=== PATIENT | female | born 1995 | race Caucasian/White ===

== ENCOUNTER 2017-12-11 10:40 | Emergency (ER) | payer OTHER ==
[2017-12-11 10:51] VITALS: BP 105/67; BMI 25.4
[2017-12-11 11:09] LABS: BILIRUBIN,URINE NEGATIVE (NEGATIVE); BLOOD/HEMOGLOBIN,URINE 4+ (NEGATIVE); GLUCOSE, URINE NEGATIVE (NEGATIVE); KETONES,URINE NEGATIVE (NEGATIVE); LEUKOCYTE ESTERASE ,URINE 3+ (NEGATIVE); NITRITES,URINE NEGATIVE (NEGATIVE); PROTEIN,URINE NEGATIVE (NEGATIVE); UROBILINOGEN,URINE NORMAL (NORMAL)
--- NOTE | 2017-12-11 11:10 | DR.GENAD ---
HPI - PCP Primary Care Physician: MINERVA - HPI Comment HPI Comment: WORSE TODAY. - Complaint/Symptoms Chief Complaint Doctors Comments: 5 DAYS POST AND HAVING HEAVY VAGINAL BLEEDING WITH CLOTS AND LOWER ABDOMINAL PAIN. BLEEDING CAUSING PATIENT TO BE WEAK AND DIZZY. Chief Complaint:: PT. HAD A VAGINAL DELIVERY ON 12/06/17 IN [place], [place]. PT. STATES LAST NIGHT SHE STARTED PASSING GOLF BALL SIZED TO SOFTBALL SIZED BLOOD CLOTS. PT. C/O DIZZINESS. PT. WENT TO THE [facility] LAST NIGHT AND STATES HER HGB WAS 8.5. PT. ALSO C/O ABDOMINAL CRAMPING. - Nurses notes reviewed Nurses Notes Review: Yes - Source History Provided: Patient - Mode of Arrival Mode of Arrival: Ambulatory - Timing Onset of Chief Complaint: 12/10/17 Came on: Suddenly - Duration Duration: Constant Duration: Days - Severity Severity: Moderate PMH - PMH Past Medical History: No Past Surgical History: Yes Surgical History: Tonsillectomy - Family History History of Family Medical Conditions: No Family Medical History: Diabetes Mellitus - Social History Does patient currently use any type of tobacco product: No Have you used tobacco products in the last 12 months: No Type of Tobacco Use: None Does any household member use tobacco: No Alcohol Use: None Do you use any recreational Drugs:: No Lives With: Significant Other Lives Where: Home - infectious screening In the last 2 months have you had wt loss of >10#?: NO Have you had fever, night sweats or hemotysis?: No Have you traveled outside the country in the last 6 months?: No Isolation: Standard ROS - Review of Systems Constitutional: Weakness, Fatigue Eyes: No Symptoms Reported ENTM: No Symptoms Reported Respiratoy: No Symptoms Reported Cardiovascular: No Symptoms Reported Gastrointestinal/Abdominal: Abdominal Pain Genitourinary: No Symptoms Reported Neurological: Weakness, Dizziness Musculoskeletal: No Symptoms Reported Integumentary: No Symptoms Reported Hematologic/Lymphatic: No Symptoms Reported Endocrine: No Symptoms Reported All Other Systems: Reviewed and Negative PE - Vital Signs Vitals: Temperature 98.7 F Pulse Rate 92 Respiratory Rate 17 Blood Pressure [Right Arm] 93/54 Blood Pressure 105/67 O2 Sat by Pulse Oximetry 99 - General Limitations: No Limitations General Appearance: Alert - Head Head Exam: Normal Inspection - Eyes Eye exam: Normal Appearance - ENT ENT Exam: Normal External Ear Exam External Ear Exam: Normal External Inspection TM/Canal Exam: Bilateral Normal Nose Exam: Normal Nose Exam Mouth Exam: Normal Inspection Throat Exam: Normal Inspection - Chest Chest Inspection: Symmetric Chest Wall Rise - Respiratory Respiratory Exam: Normal Lung Sounds Bilat Respiratory Exam: Bilateral Clear to Auscultation - Cardiovascular Cardiovascular Exam: Regular Rate, Normal Rhythm, Normal Heart Sounds - Abdominal Exam Abdominal Exam: Normal Bowel Sounds, Soft. negative: Tenderness - Extremities Extremities Exam: Normal Inspection - Back Back Exam: Normal Inspection - Neurologic Neurological Exam: Alert, Oriented X3 - Psychiatric Psychiatric Exam: Normal Affect, Normal Mood - Skin Skin Exam: Normal Color [facility] - Additional Information Additional Information Obtained From: Family - Differential Diagnosis Differential Diagnosis: POST HEMORRHAGE, LOWER ABDOMINAL PAIN Course - Treatment Treatment: SEE ORDERS. - Education/Counseling Education/Counseling: Patient, Family, Education Educated On: Treatment, Diagnosis, Needs for Follow Up ROR - Labs Reviewed Laboratory Results Reviewed?: Yes Result Diagrams: 12/11/17 11:20 12/11/17 11:20 Laboratory: WBC 11.1 X10^3/uL (3.6-10.0) H 12/11/17 11:20 RBC 3.40 X10^6/uL (3.5-5.4) L 12/11/17 11:20 Hgb 9.1 g/dL (12.0-16.0) L 12/11/17 11:20 Hct 27.4 % (36.0-47.0) L 12/11/17 11:20 MCV 80.6 fL (80.0-100.0) 12/11/17 11:20 MCH 26.7 pg (27.0-34.0) L 12/11/17 11:20 MCHC 33.1 g/dL (33.0-35.0) 12/11/17 11:20 RDW 14.3 % (11.6-16.5) 12/11/17 11:20 Plt Count 268 X10^3/uL (150.0-450.0) 12/11/17 11:20 Plt Count Comment Adequate (ADEQUATE) 12/11/17 11:20 MPV 7.0 fL (7.4-11.0) L 12/11/17 11:20 Neut % 76.2 % (42.0-75.0) H 12/11/17 11:20 Lymph % 15.2 % (21.0-51.0) L 12/11/17 11:20 [place] % 5.1 % (0.0-13.0) 12/11/17 11:20 Eos % 3.3 % (0.9-2.9) H 12/11/17 11:20 Baso % 0.2 % (0.2-1.0) 12/11/17 11:20 Neut # 8.4 x10^3/uL (2.2-4.8) H 12/11/17 11:20 Lymph # 1.7 X10^3/uL (1.3-2.9) 12/11/17 11:20 [place] # 0.6 x10^3/uL (0.3-0.8) 12/11/17 11:20 Eos # 0.4 x10^3/uL (0.0-0.2) H 12/11/17 11:20 Baso # 0.0 X10^3/uL (0.0-0.1) 12/11/17 11:20 Absolute Nucleated RBC 0.0 /100WBC 12/11/17 11:20 Total Counted 100 12/11/17 11:20 Neutrophils % (Manual) 81 % (39-76) H 12/11/17 11:20 Lymphocytes % (Manual) 14 % (13-43) 12/11/17 11:20 Monocytes % (Manual) 2 % (4-9) L 12/11/17 11:20 Eosinophils % (Manual) 3 % (0-6) 12/11/17 11:20 Plt Morphology Comment Normal (NORMAL) 12/11/17 11:20 RBC Morphology Normal (NORMAL) 12/11/17 11:20 INR Target Range - 12/11/17 11:20 INR 0.98 (0.8-1.3) 12/11/17 11:20 PTT 31.9 SECONDS (22.9-36.5) 12/11/17 11:20 PTT Comment - 12/11/17 11:20 Sodium 140 mmol/L (136-145) 12/11/17 11:20 Corrected Sodium TNP 12/11/17 11:20 Potassium 3.6 mmol/L (3.5-5.1) 12/11/17 11:20 Chloride 104 mmol/L (98-107) 12/11/17 11:20 Carbon Dioxide 28.3 mmol/L (21-32) 12/11/17 11:20 BUN 6 mg/dL (7-18) L 12/11/17 11:20 Creatinine 0.54 mg/dL (0.55-1.02) L 12/11/17 11:20 Est GFR (MDRD) Af Amer > 60 (>60) 12/11/17 11:20 Est GFR (MDRD) Non-Af > 60 (>60) 12/11/17 11:20 Glucose 81 mg/dL (65-99) 12/11/17 11:20 Calcium 8.6 mg/dL (8.5-10.1) 12/11/17 11:20 Corrected Calcium 9.8 mg/dL (8.5-10.1) 12/11/17 11:20 Total Bilirubin 0.20 mg/dL (0.2-1.0) 12/11/17 11:20 AST 26 Units/L (15-37) 12/11/17 11:20 ALT 37 Units/L (12-78) 12/11/17 11:20 Alkaline Phosphatase 128 Units/L (46-116) H 12/11/17 11:20 Total Protein 7.2 g/dL (6.4-8.2) 12/11/17 11:20 Albumin 2.5 g/dL (3.4-5.0) L 12/11/17 11:20 Globulin 4.7 g/dL (2.5-4.5) H 12/11/17 11:20 Albumin/Globulin Ratio 0.5 Ratio (1.1-2.1) L 12/11/17 11:20 Specimen Type Clean catch urine 12/11/17 10:55 Urine Color Yellow (YELLOW) 12/11/17 10:55 Urine Appearance Clear (CLEAR) 12/11/17 10:55 Urine pH 6.0 (5.0 - 8.0) 12/11/17 10:55 Ur Specific [place] 1.015 (1.000-1.030) 12/11/17 10:55 Urine Protein Negative (NEGATIVE) 12/11/17 10:55 Urine Glucose (UA) Negative (NEGATIVE) 12/11/17 10:55 Urine Ketones Negative (NEGATIVE) 12/11/17 10:55 Urine Occult Blood 4+ (NEGATIVE) 12/11/17 10:55 Urine Nitrite Negative (NEGATIVE) 12/11/17 10:55 Urine Bilirubin Negative (NEGATIVE) 12/11/17 10:55 Urine Urobilinogen Normal (NORMAL) 12/11/17 10:55 Ur Leukocyte Esterase 3+ (NEGATIVE) 12/11/17 10:55 Urine RBC 12-15 /HPF (NEGATIVE) 12/11/17 10:55 Urine WBC 10-12 /HPF (NEGATIVE) 12/11/17 10:55 Ur Squamous Epith Cells Rare /HPF (NEGATIVE) 12/11/17 10:55 Amorphous Sediment 1+ /HPF (NEGATIVE) 12/11/17 10:55 Urine Bacteria Negative /HPF (NEGATIVE) 12/11/17 10:55 Ur Culture Indicated? No/not indicated 12/11/17 10:55 - XRAY XRAY Interpreted by: Radiologist XRAY Findings: REPORT DISCUSS WITH PATIENT. - Diagnosis Discharge Problem: Lower abdominal pain hemorrhage Qualifiers: hemorrhage type: delayed hemorrhage Qualified Code(s): O72.2 - Delayed and secondary hemorrhage - Discharge Plan Disposition: 01 HOME, SELF-CARE Condition: Stable - Follow ups/Referrals Follow ups/Referrals: Jay Wilkerson [Primary Care Provider] - 3 days - Instructions Instructions: Abnormal Uterine Bleeding, [id number] Additional Instructions: TO [facility] NOW.
[2017-12-11 11:18] LABS: AMORPHOUS SEDIMENT,UR 1+ /HPF (NEGATIVE); APPEARANCE,URINE CLEAR (CLEAR); BACTERIA,URINE NEGATIVE /HPF (NEGATIVE); COLOR,URINE YELLOW (YELLOW); SQUAMOUS EPITHELIAL CELL,UR RARE /HPF (NEGATIVE)
[2017-12-11 11:31] LABS: BASOPHILS % (AUTO) 0.2 % (0.2-1.0); EOSINOPHILS # (AUTO) 0.4 x10^3/uL (0.0-0.2); EOSINOPHILS % (AUTO) 3.3 % (0.9-2.9); HEMATOCRIT 27.4 % (36.0-47.0); HEMOGLOBIN 9.1 g/dL (12.0-16.0); LYMPHOCYTES # (AUTO) 1.7 X10^3/uL (1.3-2.9); LYMPHOCYTES % (AUTO) 15.2 % (21.0-51.0); MEAN CORPUSCULAR HEMOGLOBIN 26.7 pg (27.0-34.0); MEAN CORPUSCULAR HGB CONC 33.1 g/dL (33.0-35.0); MEAN CORPUSCULAR VOLUME 80.6 fL (80.0-100.0); MONOCYTES # (AUTO) 0.6 x10^3/uL (0.3-0.8); MONOCYTES % (AUTO) 5.1 % (0.0-13.0); NEUTROPHILS # (AUTO) 8.4 x10^3/uL (2.2-4.8); NEUTROPHILS % (AUTO) 76.2 % (42.0-75.0); PLATELET COUNT 268 X10^3/uL (150.0-450.0); RED CELL DISTRIBUTION WIDTH 14.3 % (11.6-16.5); WHITE BLOOD COUNT 11.1 X10^3/uL (3.6-10.0)
[2017-12-11 11:41] LABS: ALANINE AMINOTRANSFERASE 37 Units/L (12-78); ALBUMIN 2.5 g/dL (3.4-5.0); ALKALINE PHOSPHATASE 128 Units/L (46-116); ASPARTATE AMINO TRANSFERASE 26 Units/L (15-37); BLOOD UREA NITROGEN 6 mg/dL (7-18); CALCIUM 8.6 mg/dL (8.5-10.1); CARBON DIOXIDE 28.3 mmol/L (21-32); CHLORIDE 104 mmol/L (98-107); COR CA(FOR HYPOALB) 9.8 mg/dL (8.5-10.1); CREATININE 0.54 mg/dL (0.55-1.02); SODIUM 140 mmol/L (136-145); TOTAL PROTEIN 7.2 g/dL (6.4-8.2); eGFR BLACK RACES > 60 (>60); eGFR NON BLACK RACES > 60 (>60)
[2017-12-11 11:52] LABS: PLATELET MORPHOLOGY COMMENT NORMAL (NORMAL)
--- NOTE | 2017-12-11 12:37 | US ---
HISTORY: vaginal bleeding Study: Pelvic sonogram Comparison: None Technique: Multiple grayscale sonographic images were obtained. Findings: The uterus is enlarged measuring 14.1 x 8.7 x 10 cm. This is likely related to the patient's recent g estation. The myometrium is heterogeneous. The endometrium incompletely visualized but appears mildl y thickened maximum diameter 16.4 mm. There is a small cystic area within the endometrium possibly re presenting fluid or hemorrhage. No definite retained products are identified however they could not b e entirely excluded due to the incomplete visualization of the endometrium. The right ovary measured 3.2 x 2.3 x 3.7 cm and appeared normal and demonstrated normal blood flow. The left ovary measured 3. 3 x 1.9 x 2.9 cm and demonstrated normal blood flow and structure. No adnexal masses are identified. No free fluid is identified. IMPRESSION: Residually enlarged uterus secondary to the recent gestation Heterogeneous endometrium making it difficult to completely evaluate the endometrium. There does appe ar to be some mild endometrial thickening with a small cystic area within the endometrial canal likel y representing a small amount of fluid or blood. No definite retained products are identified however they cannot be entirely excluded due to the less than optimal visualization of the endometrium. Reported By:
== END 2017-12-11 15:08 | disposition home or self-care (01) ==
LOC: ER 10:48
DX: O72.2 Delayed and secondary postpartum hemorrhage (principal); R10.84 Generalized abdominal pain
CPT/HCPCS: 36415; 76856; 80053; 81001; 85025; 85610; 85730; 99283; 99284

== ENCOUNTER 2020-07-09 06:24 | Inpatient (IN) ==
[2020-07-09] MEDS ORDERED: D5LR 1L W PITOCIN 10 UNITS/L 10 UNITS/1,000 ML BAG IV PRN (06:31)
[2020-07-09] MEDS ORDERED: PHENERGAN INJ 25 MG IM PRN ×2 (06:31→15:31)
[2020-07-09] MEDS ORDERED: REGLAN INJ 10 MG VIAL IVP PRN (06:31)
[2020-07-09] MEDS ORDERED: PITOCIN IVP ONE (06:31)
[2020-07-09] MEDS ORDERED: STADOL INJ IVP PRN (06:34)
[2020-07-09] MEDS ORDERED: LR 1000 ML IV 1,000 ML IV ONE (06:36)
[2020-07-09] MEDS ORDERED: FENTANYL INJ 100 mcg ONE (06:36)
[2020-07-09] MEDS ORDERED: BETADINE SOLN ONE ×2 (06:36→16:55)
[2020-07-09] MEDS ORDERED: FENTANYL 2 mcg/mL-ROPIV 0.1%-NS EPIDURAL 200 ML EPI ONE (06:38)
[2020-07-09] MEDS: D5 1/2 NS 1000 ML 1,000 ML IV SCH ×2 (06:40→15:00)
[2020-07-09] MEDS ORDERED: REGLAN INJ 10 MG VIAL ONE (07:56)
[2020-07-09] MEDS ORDERED: NS 500 ML IV 500 ML IV ONE (12:41)
[2020-07-09] MEDS ORDERED: XYLOCAINE 1 % (PLAIN) ONE (13:20)
[2020-07-09] MEDS ORDERED: XYLOCAINE 2 % (PLAIN) ONE (14:32)
[2020-07-09] MEDS ORDERED: DECADRON INJ ONE (14:32)
[2020-07-09] MEDS: D5 1/2 NS 1000 ML 1,000 ML IV ONE ×4 (15:00→16:33)
--- NOTE | 2020-07-09 15:41 | DR.H&PGYN ---
H&P OBSTERICS/GYNECOLOGY Allergies Allergies Allergy/AdvReac Type Severity Reaction Status Date / Time No Known Drug Allergies Allergy Verified 12/11/17 10:45 History of Present Illness History of Present Illness: 39 week elective induction of labor Review of Systems Constitutional: No Symptoms Reported Eyes: No Symptoms Reported ENT: No Symptoms Reported Respiratory: No Symptoms Reported Cardiovascular: No Symptoms Reported Gastrointestinal: No Symptoms Reported Genitourinary: No Symptoms Reported Musculoskeletal: No Symptoms Reported Skin: No Symptoms Reported Neurological: No Symptoms Reported Obsterical History : 2 Para: 1 Gynecologic History Patient has had abnormal pap smear: No Past Medical History Past Gynecological History: None Past Surgical History Surgical History: Tonsillectomy Social History Does patient currently use any type of tobacco product: No Have you used tobacco products in the last 12 months: No Type of Tobacco Use: None Does any household member use tobacco: No Alcohol Use: None Drug Use: None Medications Active Medications Butorphanol Tartrate (Stadol Inj) 1 mg IVP Q3H PRN PRN Reason: PAIN MILD Dextrose/Lactated Ringer's (D5lr 1l W Pitocin 10 Units/L) 10 units in 1,000 mls @ 12 mls/hr IV PER PROTOCOL PRN; Protocol PRN Reason: PER PROTOCOL Last Titration: 07/09/20 12:50 Dose: 10 milliunit/min, 60 mls/hr Documented by: Dextrose/Sodium Chloride (D5 1/2 Ns 1000 Ml) 1,000 mls @ 125 mls/hr IV Q8H [facility] Last Admin: 07/09/20 06:40 Dose: 125 mls/hr Documented by: Oxytocin 20 units/ Dextrose/ (Sodium Chloride) 1,002 mls @ 125 mls/hr IV Q8H [facility] Ibuprofen (Motrin Tab 800 Mg) 800 mg PO Q8H PRN PRN Reason: MILD TO MODERATE PAIN Metoclopramide HCl (Reglan Inj 10 Mg Vial) 10 mg IVP Q6H PRN PRN Reason: Indigestion/Nausea Last Admin: 07/09/20 08:01 Dose: 10 mg Documented by: Promethazine HCl (Phenergan Inj 25 Mg) 12.5 - 25 mg IM Q4H PRN PRN Reason: NAUSEA/VOMITING Promethazine HCl (Phenergan Inj 25 Mg) 25 mg IM Q4-6H PRN PRN Reason: NAUSEA/VOMITING Physical Exam Temperature: 97.2 F Blood Pressure: 105/67 Respiratory Rate: 18 O2 Sat by Pulse Oximetry: 100 Oriented: Normal Eyes: Normal Ear: Normal Nose: Normal Throat: Normal Respiratory: Normal Cardiovascular: Normal : Normal GI: None Skin: Normal Psychiatric: Normal Mood Description: Calm Affect: Normal Speech Pattern: Clear Plan Plan: routine induction of labor Review H&P Reviewed: Yes Patient was examined?: Yes
--- NOTE | 2020-07-09 15:45 | OB.OPNOTE ---
Op Note-[employer] Post-Op Diagnosis: term Procedure: with midline epis repaired with 2-0 polysorb Type of Anesthesia: Epidural Anesthetic Surgeon: lara EBL: 200 Type of Fluids Used:: Normal Saline and Lactated Ringers Complications:: minor shoulder dystocia relieved with Edgar and suprapubic pressure Drains/Tubes Placed: None Specimen: placenta Findings: Male 8lb 4oz apgars 8-9
[2020-07-09] MEDS ORDERED: MILK OF MAGNESIA PO PRN (15:52)
[2020-07-09] MEDS ORDERED: AMBIEN PO PRN (15:52)
[2020-07-09] MEDS ORDERED: DERMOPLAST PAIN RELIEF SPRAY TOP PRN (15:52)
[2020-07-09] MEDS ORDERED: ADACEL or BOOSTRIX TDaP VACCINE IM ONE (15:52)
[2020-07-09] MEDS: D5 1/2 NS 1L W PITOCIN 20 UNITS/L 20 UNITS/1,000 ML BAG IV ONE ×2 (16:00→16:30)
[2020-07-09] MEDS ORDERED: D5 1/2 NS 1000 ML 1,000 ML with PITOCIN 20 UNITS IV SCH ×2 (16:00)
[2020-07-09] MEDS ORDERED: PITOCIN ONE (16:17)
[2020-07-09] MEDS: MOTRIN TAB 800 MG PO PRN (19:50)
[2020-07-10] MEDS: MOTRIN TAB 800 MG PO PRN (02:30)
[2020-07-10 06:29] LABS: HEMATOCRIT 26.8 % (36.0-47.0); HEMOGLOBIN 9.1 g/dL (12.0-16.0)
[2020-07-10] MEDS ORDERED: MOTRIN TAB 800 MG PO PRN (07:54)
[2020-07-10] MEDS ORDERED: NORCO 5/325 MG TAB PO PRN (08:01)
[2020-07-10] MEDS ORDERED: PRENATAL PLUS PO SCH (09:00)
[2020-07-10 12:16] VITALS: BP 95/52
== END 2020-07-10 17:30 | disposition home or self-care (01) | DRG 807 ==
LOC: LD 06:24 → MED/SURG 17:02
PROVIDERS: ADMIT Obstetrics & Gynecology; ATTEND Obstetrics & Gynecology

== ENCOUNTER 2023-08-28 15:13 | Inpatient (IN) ==
[2023-08-28] MEDS: D5 1/2 NS 1,000 ML 1,000 ML IV SCH (17:40)
[2023-08-28] MEDS: ZOFRAN INJ 4 MG VIAL IVP PRN (17:40)
[2023-08-28 17:43] LABS: LYMPHOCYTES # (AUTO) 0.5 X10^3/uL (1.3-2.9); MONOCYTES # (AUTO) 0.3 x10^3/uL (0.3-0.8)
[2023-08-28] MEDS: TYLENOL 325 MG TAB PO PRN (17:44)
[2023-08-28 17:47] LABS: BASOPHILS % (AUTO) 0.2 % (0.2-1.0); HEMATOCRIT 38.6 % (36.0-47.0); HEMOGLOBIN 12.8 g/dL (12.0-16.0); LYMPHOCYTES % (AUTO) 5.9 % (21.0-51.0); MEAN CORPUSCULAR HEMOGLOBIN 28.2 pg (27.0-34.0); MEAN CORPUSCULAR HGB CONC 33.3 g/dL (33.0-35.0); MEAN CORPUSCULAR VOLUME 84.7 fL (80.0-100.0); MEAN PLATELET VOLUME 7.5 fL (7.4-11.0); MONOCYTES % (AUTO) 3.3 % (0.0-13.0); NEUTROPHILS # (AUTO) 8.1 x10^3/uL (2.2-4.8); NEUTROPHILS % (AUTO) 90.6 % (42.0-75.0); PLATELET COUNT 235 X10^3/uL (150.0-450.0); RED BLOOD COUNT 4.55 X10^6/uL (3.5-5.4); RED CELL DISTRIBUTION WIDTH 13.8 % (11.6-16.5)
[2023-08-28 17:51] LABS: ALANINE AMINOTRANSFERASE 23 Units/L (12-78); ALBUMIN 3.7 g/dL (3.4-5.0); ALKALINE PHOSPHATASE 53 Units/L (46-116); ASPARTATE AMINO TRANSFERASE 19 Units/L (15-37); BLOOD UREA NITROGEN 7 mg/dL (7-18); CALCIUM 8.5 mg/dL (8.5-10.1); CARBON DIOXIDE 24.2 mmol/L (21-32); CHLORIDE 102 mmol/L (98-107); COR NA(FOR HYPERGLY) 139 mmol/L (136-145); CREATININE 1.01 mg/dL (0.55-1.02); GLUCOSE 137 mg/dL (65-99); POTASSIUM 3.7 mmol/L (3.5-5.1); SODIUM 138 mmol/L (136-145); TOTAL PROTEIN 7.9 g/dL (6.4-8.2); eGFR NON BLACK RACES > 60 (>60)
[2023-08-28] MEDS ORDERED: CONSULT PHARMACY - POTASSIUM & MAGNESIUM XX SCH (18:00)
[2023-08-28 18:05] VITALS: BMI 24.4
[2023-08-28 18:12] LABS: PLATELET MORPHOLOGY COMMENT NORMAL (NORMAL)
[2023-08-28] MEDS: TORADOL 30 MG VIAL IVP PRN (19:32)
[2023-08-28] MEDS: MAGNESIUM SULFATE 1 GRAM/100 mL PREMIX 1 G/100 ML BAG IV SCH ×2 (21:30→22:29)
[2023-08-29] MEDS: K-RIDER 10 MEQ/NS 100 ML 10 MEQ/100 ML BAG IV SCH ×2 (00:22→01:40)
[2023-08-29] MEDS: D5 1/2 NS 1,000 ML 1,000 ML IV SCH ×5 (00:27→21:35)
[2023-08-29] MEDS: TORADOL 30 MG VIAL IVP PRN ×3 (01:36→19:27)
[2023-08-29] MEDS ORDERED: K-DUR TAB 20 MEQ PO SCH ×2 (02:00→09:00)
--- NOTE | 2023-08-29 02:05 | RAD ---
EXAM:CHEST, 1 VIEWHISTORY:Nausea, vomiting, fever, weakness and heartburn with headache that started last weekCOMPARISON:None availableTECHNIQUE:One view frontal chest radiographFINDINGS:Midline trachea. Normal heart size. The lungs are clear and well inflated.IMPRESSION:Nothing acuteTHIS IS AN ELECTRONICALLY VERIFIED FINAL [id number]/[id number] 2:01 AM - Electronically signed by Rocky Winters MD
[2023-08-29] MEDS: TYLENOL 325 MG TAB PO PRN ×2 (05:09→13:34)
[2023-08-29 06:02] LABS: BASOPHILS % (AUTO) 0.4 % (0.2-1.0); EOSINOPHILS % (AUTO) 0.7 % (0.9-2.9); HEMATOCRIT 34.2 % (36.0-47.0); HEMOGLOBIN 11.8 g/dL (12.0-16.0); LYMPHOCYTES # (AUTO) 1.3 X10^3/uL (1.3-2.9); LYMPHOCYTES % (AUTO) 24.6 % (21.0-51.0); MEAN CORPUSCULAR HEMOGLOBIN 28.9 pg (27.0-34.0); MEAN CORPUSCULAR HGB CONC 34.4 g/dL (33.0-35.0); MEAN PLATELET VOLUME 7.6 fL (7.4-11.0); MONOCYTES # (AUTO) 0.9 x10^3/uL (0.3-0.8); MONOCYTES % (AUTO) 16.9 % (0.0-13.0); NEUTROPHILS # (AUTO) 2.9 x10^3/uL (2.2-4.8); NEUTROPHILS % (AUTO) 57.4 % (42.0-75.0); PLATELET COUNT 204 X10^3/uL (150.0-450.0); RED BLOOD COUNT 4.08 X10^6/uL (3.5-5.4); RED CELL DISTRIBUTION WIDTH 13.7 % (11.6-16.5); WHITE BLOOD COUNT 5.1 X10^3/uL (3.6-10.0)
[2023-08-29 06:14] LABS: ALANINE AMINOTRANSFERASE 18 Units/L (12-78); ALBUMIN 3.3 g/dL (3.4-5.0); ALKALINE PHOSPHATASE 44 Units/L (46-116); ASPARTATE AMINO TRANSFERASE 16 Units/L (15-37); BLOOD UREA NITROGEN 6 mg/dL (7-18); CARBON DIOXIDE 28.1 mmol/L (21-32); CHLORIDE 105 mmol/L (98-107); COR CA(FOR HYPOALB) 8.6 mg/dL (8.5-10.1); CREATININE 0.75 mg/dL (0.55-1.02); GLUCOSE 109 mg/dL (65-99); POTASSIUM 3.7 mmol/L (3.5-5.1); SODIUM 141 mmol/L (136-145); eGFR NON BLACK RACES > 60 (>60)
[2023-08-29] MEDS ORDERED: CONSULT PHARMACY - POTASSIUM & MAGNESIUM XX SCH (08:00)
[2023-08-29] MEDS: ZOFRAN INJ 4 MG VIAL IVP PRN ×2 (08:35→19:27)
[2023-08-29] MEDS: NORCO 10/325 TAB PO PRN ×2 (10:25→17:25)
[2023-08-30] MEDS: NORCO 10/325 TAB PO PRN ×3 (00:14→17:49)
[2023-08-30] MEDS: D5 1/2 NS 1,000 ML 1,000 ML IV SCH ×4 (04:12→14:30)
[2023-08-30] MEDS: ZOFRAN INJ 4 MG VIAL IVP PRN ×2 (05:12→21:13)
[2023-08-30] MEDS: TORADOL 30 MG VIAL IVP PRN (05:18)
[2023-08-30] MEDS ORDERED: SOLU-Medrol 125 MG VIAL IVP ONE (09:02)
[2023-08-30] MEDS ORDERED: OMNIPAQUE 350 mg/mL 100 mL BTL 100 ML ONE (09:17)
[2023-08-30] MEDS: ANTIVERT TAB 25 MG PO SCH ×3 (10:30→21:11)
--- NOTE | 2023-08-30 10:57 | CT ---
EXAM:CT brain without and with IV contrastHISTORY:chronic headache x3days ; -COMPARISON:None.TECHNIQUE:Multiple axial images of the brain were obtained without and with IV contrast. Dose reduction techniques including Automated Exposure Control (AEC) and adjustment of mA and kV were utilized.FINDINGS:Visualized portions of the paranasal sinuses and mastoid air cells are clear. No calvarial fracture is seen. No acute intracranial hemorrhage or mass effect is seen. The cerebral ventricles are normal in size. No evidence of acute CVA.Contrast-enhanced images reveal no abnormal enhancement of the brain parenchyma or meninges. There is normal enhancement of the dural venous sinuses.IMPRESSION:No abnormalities are seen.THIS IS AN ELECTRONICALLY VERIFIED FINAL [id number]/[id number] 10:54 AM - Electronically signed by Robert Rhodes MD
[2023-08-30 13:10] LABS: ERYTHROCYTE SEDIMENTATION RATE 27 MM/HOUR (0-20)
[2023-08-30 13:12] LABS: BASOPHILS % (AUTO) 0.3 % (0.2-1.0); EOSINOPHILS % (AUTO) 0.4 % (0.9-2.9); HEMATOCRIT 37.2 % (36.0-47.0); HEMOGLOBIN 12.7 g/dL (12.0-16.0); LYMPHOCYTES # (AUTO) 0.6 X10^3/uL (1.3-2.9); LYMPHOCYTES % (AUTO) 13.4 % (21.0-51.0); MEAN CORPUSCULAR HEMOGLOBIN 28.5 pg (27.0-34.0); MEAN CORPUSCULAR HGB CONC 34.1 g/dL (33.0-35.0); MEAN CORPUSCULAR VOLUME 83.8 fL (80.0-100.0); MEAN PLATELET VOLUME 7.1 fL (7.4-11.0); MONOCYTES # (AUTO) 0.3 x10^3/uL (0.3-0.8); MONOCYTES % (AUTO) 5.7 % (0.0-13.0); NEUTROPHILS # (AUTO) 3.8 x10^3/uL (2.2-4.8); NEUTROPHILS % (AUTO) 80.2 % (42.0-75.0); PLATELET COUNT 227 X10^3/uL (150.0-450.0); RED BLOOD COUNT 4.44 X10^6/uL (3.5-5.4); RED CELL DISTRIBUTION WIDTH 13.5 % (11.6-16.5); WHITE BLOOD COUNT 4.7 X10^3/uL (3.6-10.0)
[2023-08-30 13:28] LABS: ALANINE AMINOTRANSFERASE 21 Units/L (12-78); ALBUMIN 3.4 g/dL (3.4-5.0); ALKALINE PHOSPHATASE 45 Units/L (46-116); ASPARTATE AMINO TRANSFERASE 14 Units/L (15-37); BLOOD UREA NITROGEN 3 mg/dL (7-18); CALCIUM 8.2 mg/dL (8.5-10.1); CARBON DIOXIDE 26.9 mmol/L (21-32); CHLORIDE 105 mmol/L (98-107); COR NA(FOR HYPERGLY) 139 mmol/L (136-145); CREATININE 0.67 mg/dL (0.55-1.02); GLUCOSE 116 mg/dL (65-99); POTASSIUM 3.8 mmol/L (3.5-5.1); SODIUM 139 mmol/L (136-145); TOTAL PROTEIN 7.5 g/dL (6.4-8.2); eGFR NON BLACK RACES > 60 (>60)
[2023-08-30] MEDS: SOLU-Medrol 40 MG VIAL IVP SCH (21:13)
[2023-08-31 04:36] VITALS: TEMP 97.9
[2023-08-31] MEDS: D5 1/2 NS 1,000 ML 1,000 ML IV SCH ×2 (05:14→09:24)
[2023-08-31] MEDS: ANTIVERT TAB 25 MG PO SCH (05:38)
[2023-08-31] MEDS: NORCO 10/325 TAB PO PRN (05:48)
[2023-08-31 06:08] LABS: ERYTHROCYTE SEDIMENTATION RATE 29 MM/HOUR (0-20)
[2023-08-31 06:11] LABS: BASOPHILS % (AUTO) 0.1 % (0.2-1.0); HEMATOCRIT 34.2 % (36.0-47.0); HEMOGLOBIN 11.9 g/dL (12.0-16.0); LYMPHOCYTES # (AUTO) 1.1 X10^3/uL (1.3-2.9); LYMPHOCYTES % (AUTO) 10.8 % (21.0-51.0); MEAN CORPUSCULAR HEMOGLOBIN 28.9 pg (27.0-34.0); MEAN CORPUSCULAR HGB CONC 34.8 g/dL (33.0-35.0); MEAN CORPUSCULAR VOLUME 83.1 fL (80.0-100.0); MEAN PLATELET VOLUME 7.6 fL (7.4-11.0); MONOCYTES # (AUTO) 0.8 x10^3/uL (0.3-0.8); MONOCYTES % (AUTO) 7.4 % (0.0-13.0); NEUTROPHILS # (AUTO) 8.6 x10^3/uL (2.2-4.8); NEUTROPHILS % (AUTO) 81.7 % (42.0-75.0); PLATELET COUNT 269 X10^3/uL (150.0-450.0); RED BLOOD COUNT 4.11 X10^6/uL (3.5-5.4); RED CELL DISTRIBUTION WIDTH 13.5 % (11.6-16.5); WHITE BLOOD COUNT 10.6 X10^3/uL (3.6-10.0)
[2023-08-31 06:23] LABS: ALANINE AMINOTRANSFERASE 19 Units/L (12-78); ALBUMIN 3.2 g/dL (3.4-5.0); ALKALINE PHOSPHATASE 43 Units/L (46-116); ASPARTATE AMINO TRANSFERASE 12 Units/L (15-37); BLOOD UREA NITROGEN 6 mg/dL (7-18); CALCIUM 8.9 mg/dL (8.5-10.1); CARBON DIOXIDE 27.7 mmol/L (21-32); CHLORIDE 106 mmol/L (98-107); COR CA(FOR HYPOALB) 9.5 mg/dL (8.5-10.1); COR NA(FOR HYPERGLY) 141 mmol/L (136-145); CREATININE 0.69 mg/dL (0.55-1.02); GLUCOSE 121 mg/dL (65-99); POTASSIUM 3.8 mmol/L (3.5-5.1); SODIUM 140 mmol/L (136-145); TOTAL PROTEIN 6.9 g/dL (6.4-8.2); eGFR NON BLACK RACES > 60 (>60)
[2023-08-31] MEDS ORDERED: SOLU-Medrol 125 MG VIAL IVP SCH (09:00)
[2023-08-31 09:24] VITALS: BP 100/62; PULSE 85; RESP 18; O2SAT 100
[2023-08-31] MEDS: SOLU-Medrol 40 MG VIAL IVP SCH (09:25)
== END 2023-08-31 09:45 | disposition home or self-care (01) | DRG 103 ==
LOC: MED/SURG
PROVIDERS: ADMIT Family Medicine; ATTEND Family Medicine